=== PATIENT | male | born 1955 | race Caucasian/White ===

== ENCOUNTER 2017-10-04 17:58 | Observation (INO) | payer OTHER ==
[2017-10-04 18:04] VITALS: BMI 25.7
--- NOTE | 2017-10-04 18:29 | DR.GENAD ---
HPI - PCP Primary Care Physician: marquis - Complaint/Symptoms Chief Complaint Doctors Comments: Patient presents with complaint of dyspnea. He admits to a three pack per day smoker but the past week smoked three per day. He denies chest pain. Chief Complaint:: Patient c/o shortness of breath x2 weeks but the shortness of breath has been getting worse. Patient also c/o heaviness in chest intermittently lasting approx 15 minutes. - Source History Provided: Patient - Mode of Arrival Mode of Arrival: Ambulatory - Timing Onset of Chief Complaint: 09/17/17 <BALBINA MERAZ - Last Filed: 10/04/17 19:40> PMH - PMH Past Medical History: Yes Past Medical History: Arthritis, COPD, Hypertension, Hyperthyroidism Past Surgical History: No - Family History History of Family Medical Conditions: Yes Family Medical History: MD, Coronary Artery Disease, Hypertension - Social History Does patient currently use any type of tobacco product: Yes Have you used tobacco products in the last 12 months: Yes Type of Tobacco Use: Cigarettes Does any household member use tobacco: No Alcohol Use: None Do you use any recreational Drugs:: No Lives With: Family Lives Where: Home - infectious screening In the last 2 months have you had wt loss of >10#?: NO Have you had fever, night sweats or hemotysis?: No Have you traveled outside the country in the last 6 months?: No Isolation: Standard <BALBINA MERAZ Last Filed: 10/04/17 19:40> ROS - Review of Systems Eyes: No Symptoms Reported ENTM: No Symptoms Reported Respiratoy: No Symptoms Reported Cardiovascular: No Symptoms Reported Gastrointestinal/Abdominal: No Symptoms Reported Genitourinary: No Symptoms Reported Neurological: No Symptoms Reported Musculoskeletal: No Symptoms Reported Integumentary: No Symptoms Reported Hematologic/Lymphatic: No Symptoms Reported Endocrine: No Symptoms Reported Psychiatric: No Symptoms Reported All Other Systems: Reviewed and Negative <BALBINA MERAZ - Last Filed: 10/04/17 19:40> PE - General General Appearance: Alert, In No Apparent Distress - Head Head Exam: Normal Inspection, Atraumatic - Eyes Eye exam: Normal Appearance, PERRL, EOMI - ENT ENT Exam: Normal Exam External Ear Exam: Normal External Inspection TM/Canal Exam: Bilateral Normal Nose Exam: Normal Nose Exam Mouth Exam: Normal Inspection Throat Exam: Normal Inspection - Neck Neck Exam: Normal Inspection, Full ROM - Chest Chest Inspection: Normal Inspection - Respiratory Respiratory Exam: Normal Lung Sounds Bilat, Accessory Muscle Use Respiratory Exam: Bilateral Clear to Auscultation - Cardiovascular Cardiovascular Exam: Regular Rate - Abdominal Exam Abdominal Exam: Normal Inspection, Normal Bowel Sounds Abdominal Tenderness: negative: RUQ, RLQ, LUQ, LLQ, Epigastrium, Suprapubic, Diffuse, Mild, Moderate, Severe, Other - Extremities Extremities Exam: Normal Inspection, Full ROM - Back Back Exam: Normal Inspection - Neurologic Neurological Exam: Alert, Oriented X3, CN II-XII Intact - Psychiatric Psychiatric Exam: Normal Affect, Normal Mood - Skin Skin Exam: Warm, Dry, Intact <BALBINA MERAZ - Last Filed: 10/04/17 19:40> - Vital Signs Vitals: Temperature 98.2 F Pulse Rate [Left Brachial] 90 Pulse Rate 90 Respiratory Rate 22 Blood Pressure [Right Arm] 163/75 Blood Pressure 134/81 O2 Sat by Pulse Oximetry 100 Course - Reevaluation 1st: Improved <BALBINA MERAZ - Last Filed: 10/04/17 19:40> ROR - Labs Reviewed Laboratory Results Reviewed?: Yes (D Dimer 494) Result Diagrams: 10/04/17 18:27 10/04/17 18:27 - XRAY XRAY Interpreted by: Radiologist (Chest:The cardiac silhouette size is within normal limits for technique. There are increased interstitial markins throughout the lungs, which are increased from prior. No dense infiltrates or significant pleural effusion. Findings: Diffusely increased interstitial markings are increased compared to the prior study and may represent worsened chronic interstitial lung disease, although acute etiology such as interstitial edema or atypical infection are possible. ) <BALBINA MERAZ - Last Filed: 10/04/17 19:40> - Labs Reviewed Result Diagrams: 10/04/17 18:27 10/04/17 18:27 <MER HAYES - Last Filed: 10/04/17 21:43> - Labs Reviewed Laboratory: WBC 7.5 X10^3/uL (3.6-10.0) 10/04/17 18: RBC 4.95 X10^6/uL (4.7-6.0) 10/04/17 18: Hgb 11.9 g/dL (13.5-18.0) L 10/04/17 18: Hct 37.6 % (42.0-54.0) L 10/04/17: MCV 76.1 fL (80.0-100.0) L 10/04/17 MCH 24.1 pg (27.0-34.0) L 10/04/17 MCHC 31.6 g/dL (33.0-35.0) L 10/04/17 RDW 18.0 % (11.6-16.5) H 10/04/17 Plt Count 314 X10^3/uL (150.0-450.0) 10/04/17 Plt Count Comment Adequate (ADEQUATE) 10/04/17 MPV 8.2 fL (7.4-11.0) 10/04/17 Neut % (Auto) 91.3 % (42.0-75.0) H 10/04/17 Lymph % (Auto) 7.2 % (21.0-51.0) L 10/04/17 Brewster % (Auto) 0.9 % (0.0-13.0) 10/04/17 Eos % (Auto) 0.0 % (0.9-2.9) L 10/04/17 Baso % (Auto) 0.6 % (0.2-1.0) 10/04/17 Neut # (Auto) 6.9 x10^3/uL (2.2-4.8) H 10/04/17 Lymph # (Auto) 0.5 X10^3/uL (1.3-2.9) L 10/04/17: Brewster # (Auto) 0.1 x10^3/uL (0.3-0.8) L 10/04/17: Eos # (Auto) 0.0 x10^3/uL (0.0-0.2) 10/04/17 Baso # (Auto) 0.0 X10^3/uL (0.0-0.1) 10/04/17 Absolute Nucleated RBC 0.0 /100WBC 10/04/17 Total Counted 100 10/04/17 Neutrophils % (Manual) 91 % (39-76) H 10/04/17 18: Lymphocytes % (Manual) 9 % (13-43) L 10/04/17 18: Plt Morphology Comment Normal (NORMAL) 10/04/17: RBC Morphology Abnormal (NORMAL) 10/04/17 18: Hypochromasia 1+ A 10/04/17 18: Anisocytosis 1+ A 10/04/17 18: Microcytosis 1+ A 10/04/17: INR Target Range - 10/04/17: INR 1.16 (0.8-1.3) 10/04/17: APTT 35.4 SECONDS (22.9-36.5) 10/04/17: PTT Comment - 10/04/17 D-Dimer 494 ng/mL (0-400) H* 10/04/17 18: Sodium 137 mmol/L (136-145) 10/04/17: Corrected Sodium 143 mmol/L (136-145) 10/04/17: Potassium 4.3 mmol/L (3.5-5.1) 10/04/17: Chloride 105 mmol/L (98-107) 10/04/17: Carbon Dioxide 20.6 mmol/L (21-32) L 10/04/17: BUN 13 mg/dL (7-18) 10/04/17 18: Creatinine 1.19 mg/dL (0.70-1.30) 10/04/17 18: Est GFR (MDRD) Af Amer > 60 (>60) 10/04/17: Est GFR (MDRD) Non-Af > 60 (>60) 10/04/17: Glucose 369 mg/dL (65-99) H 10/04/17 18: Hemoglobin A1c 6.7 % 10/04/17: Calcium 8.2 mg/dL (8.5-10.1) L 10/04/17 18: Corrected Calcium 8.9 mg/dL (8.5-10.1) 10/04/17 18: Magnesium 1.9 mg/dL (1.7-2.9) 10/04/17: Total Bilirubin 0.20 mg/dL (0.2-1.0) 10/04/17 18:27 AST 17 Units/L (15-37) 10/04/17 18:27 ALT 24 Units/L (12-78) 10/04/17 18:27 Alkaline Phosphatase 99 Units/L (46-116) 10/04/17 18:27 Creatine Kinase 107 Units/L (39-308) 10/04/17 18:27 CK-MB (CK-2) < 1.0 ng/mL (0-4.0) 10/04/17 18: CK/CKMB % Calc 0.9 % (<4) 10/04/17 18: Troponin I < 0.02 ng/mL (0-1.5) 10/04/17 18: Total Protein 7.7 g/dL (6.4-8.2) 10/04/17 18: Albumin 3.1 g/dL (3.4-5.0) L 10/04/17 18: Globulin 4.6 g/dL (2.5-4.5) H 10/04/17 18: Albumin/Globulin Ratio 0.7 Ratio (1.1-2.1) L 10/04/17 18:27 <BALBINA MERAZ - Last Filed: 10/04/17 19:40> <MER HAYES - Last Filed: 10/04/17 21:43> - Diagnosis Discharge Problem: Chest pain, rule out acute myocardial infarction, COPD with acute exacerbation , Diabetes mellitus, new onset, Pulmonary interstitial fibrosis, Essential hypertension, Hypothyroidism, Hilar lymphadenopathy - Discharge Plan Disposition: ADMITTED INPATIENT Condition: Stable - Follow ups/Referrals Follow ups/Referrals: Timbo Marcos [Primary Care Provider] - 3 days - Instructions
[2017-10-04 18:39] LABS: BASOPHILS % (AUTO) 0.6 % (0.2-1.0); HEMATOCRIT 37.6 % (42.0-54.0); HEMOGLOBIN 11.9 g/dL (13.5-18.0); LYMPHOCYTES # (AUTO) 0.5 X10^3/uL (1.3-2.9); LYMPHOCYTES % (AUTO) 7.2 % (21.0-51.0); MEAN CORPUSCULAR HEMOGLOBIN 24.1 pg (27.0-34.0); MEAN CORPUSCULAR HGB CONC 31.6 g/dL (33.0-35.0); MEAN CORPUSCULAR VOLUME 76.1 fL (80.0-100.0); MEAN PLATELET VOLUME 8.2 fL (7.4-11.0); MONOCYTES # (AUTO) 0.1 x10^3/uL (0.3-0.8); MONOCYTES % (AUTO) 0.9 % (0.0-13.0); NEUTROPHILS # (AUTO) 6.9 x10^3/uL (2.2-4.8); NEUTROPHILS % (AUTO) 91.3 % (42.0-75.0); PLATELET COUNT 314 X10^3/uL (150.0-450.0); RED BLOOD COUNT 4.95 X10^6/uL (4.7-6.0); WHITE BLOOD COUNT 7.5 X10^3/uL (3.6-10.0)
[2017-10-04] MEDS ORDERED: SOLU-Medrol 125 MG VIAL IVP ONE (18:41)
[2017-10-04] MEDS ORDERED: DUONEB 0.5 MG/3 MG NEB ONE (18:41)
[2017-10-04] MEDS ORDERED: LR 1000 ML IV 1,000 ML IV ONE (18:42)
[2017-10-04] MEDS: LR 1000 ML IV 1,000 ML IV SCH (18:46)
[2017-10-04] MEDS ORDERED: DUONEB 0.5 MG/3 MG ONE (18:47)
[2017-10-04 18:55] LABS: BLOOD UREA NITROGEN 13 mg/dL (7-18); CALCIUM 8.2 mg/dL (8.5-10.1); CARBON DIOXIDE 20.6 mmol/L (21-32); CHLORIDE 105 mmol/L (98-107); COR NA(FOR HYPERGLY) 143 mmol/L (136-145); CREATININE 1.19 mg/dL (0.70-1.30); SODIUM 137 mmol/L (136-145); TROPONIN I < 0.02 ng/mL (0-1.5); eGFR BLACK RACES > 60 (>60); eGFR NON BLACK RACES > 60 (>60)
[2017-10-04 18:56] LABS: PLATELET MORPHOLOGY COMMENT NORMAL (NORMAL)
[2017-10-04 18:58] LABS: ANISOCYTOSIS 1+; HYPOCHROMASIA 1+; MICROCYTOSIS 1+
[2017-10-04 19:00] LABS: ALANINE AMINOTRANSFERASE 24 Units/L (12-78); ALBUMIN 3.1 g/dL (3.4-5.0); ALKALINE PHOSPHATASE 99 Units/L (46-116); ASPARTATE AMINO TRANSFERASE 17 Units/L (15-37); CKMB % 0.9 % (<4); COR CA(FOR HYPOALB) 8.9 mg/dL (8.5-10.1); CREATINE KINASE 107 Units/L (39-308); CREATINE KINASE MB < 1.0 ng/mL (0-4.0); MAGNESIUM 1.9 mg/dL (1.7-2.9); TOTAL PROTEIN 7.7 g/dL (6.4-8.2)
[2017-10-04] MEDS ORDERED: LR 1000 ML IV 1,000 ML IV SCH (19:00)
--- NOTE | 2017-10-04 19:05 | RAD ---
Chest, AP portable Indication: Shortness of breath Comparison: 12/28/2013 Findings: Cardiac silhouette size is within normal limits for technique. There are increased intersti tial markings throughout the lungs, which are increased from prior. No dense infiltrates or significa nt pleural effusion. Findings: Diffusely increased interstitial markings are increased compared to the prior study and may represent worsened chronic interstitial lung disease, although acute etiology such as interstitial edema or at ypical infection are possible. Correlation recommended. Reported By:
[2017-10-04] MEDS ORDERED: SOLU-Medrol 125 MG VIAL ONE (19:07)
[2017-10-04] MEDS ORDERED: NS 100 ML IV 100 ML IV ONE (19:19)
[2017-10-04] MEDS ORDERED: TORADOL 30 MG VIAL IVP ONE (19:23)
[2017-10-04] MEDS ORDERED: TORADOL 30 MG VIAL ONE (19:25)
--- NOTE | 2017-10-04 20:08 | CT ---
HISTORY: Shortness of breath and elevated D-dimer. Study: CT chest with contrast Comparison: Chest x-ray dated same day. Technique: Multiple axial images of the chest were obtained from the thoracic inlet to the upper abdo men after the administration of IV contrast. MIP images were obtained. Dose reduction techniques incl uding Automated Exposure Control (AEC) and adjustment of mA and kV were utilized. Findings: Pathologic appearing mediastinal and left hilar lymph nodes, the largest measuring 2.2 cm in the shor t axis in the subcarinal area. There is no paracardial effusion observed. The thoracic aorta is nor mal in its contour without evidence for aneurysmal dilatation. The central pulmonary arterial system does not demonstrate central filling defects to suggest pulmonary emboli. Moderate centrilobular and paraseptal emphysematous changes. Biapical scarring. No suspicious pulmona ry nodule, mass, pleural effusion, focal consolidation, or pneumothorax. Suggestion of early pulmonar y fibrosis. The upper abdominal structures are unremarkable. Degenerative changes of the spine. No ag gressive osseous lesions. IMPRESSION: 1. No CT evidence of acute pulmonary embolus. 2. Pathologic mediastinal and hilar lymphadenopathy as above. No associated mass or other significant abnormality. This finding is nonspecific. Recommend clinical/laboratory correlation and consider fol low-up CT of the chest in 2-3 months to document stability/resolution. 3. Other chronic findings as above. Reported By:
[2017-10-04] MEDS ORDERED: MORPHINE SULFATE INJ 2 MG INJ IVP PRN (21:51)
[2017-10-04] MEDS ORDERED: NITROSTAT SL PRN (21:51)
[2017-10-04] MEDS ORDERED: ZITHROMAX TAB 250 MG PO ONE (21:55)
[2017-10-04 22:04] LABS: FREE T4 (FREE THYROXINE) 0.98 ng/dL (0.76-1.46); TSH (3RD GENERATION) 0.166 uIU/mL (0.358-3.74)
[2017-10-04 23:05] LABS: CREATINE KINASE 101 Units/L (39-308); CREATINE KINASE MB < 1.0 ng/mL (0-4.0); TROPONIN I < 0.02 ng/mL (0-1.5)
[2017-10-05] MEDS: DUONEB 0.5 MG/3 MG NEB SCH ×5 (00:05→16:26)
[2017-10-05] MEDS ORDERED: NICOTINE PATCH TD SCH (01:00)
[2017-10-05] MEDS ORDERED: VALIUM PO PRN (01:07)
[2017-10-05] MEDS: LR 1000 ML IV 1,000 ML IV SCH ×2 (04:33→11:43)
[2017-10-05 06:11] LABS: BLOOD UREA NITROGEN 17 mg/dL (7-18); CALCIUM 8.3 mg/dL (8.5-10.1); CARBON DIOXIDE 22.2 mmol/L (21-32); CHLORIDE 106 mmol/L (98-107); CHOL/HDL RATIO 6.1 (0.0-5.0); CHOLESTEROL 190 mg/dL (0-200); CKMB % 1.3 % (<4); COR NA(FOR HYPERGLY) 142 mmol/L (136-145); CREATINE KINASE 76 Units/L (39-308); CREATINE KINASE MB < 1.0 ng/mL (0-4.0); CREATININE 1.07 mg/dL (0.70-1.30); HDL CHOLESTEROL 31 mg/dL (40-60); SODIUM 138 mmol/L (136-145); TRIGLYCERIDES 46 mg/dL (0-150); TROPONIN I < 0.02 ng/mL (0-1.5); eGFR BLACK RACES > 60 (>60); eGFR NON BLACK RACES > 60 (>60)
[2017-10-05] MEDS: HumuLIN R SC PRN ×3 (06:16→16:39)
[2017-10-05] MEDS ORDERED: ROBITUSSIN DM PO PRN (06:19)
[2017-10-05] MEDS ORDERED: TYLENOL 325 MG TAB PO PRN (06:19)
[2017-10-05] MEDS ORDERED: TUSSIONEX PENNKINETIC SUSP PO PRN (07:00)
[2017-10-05 07:44] LABS: BASOPHILS % (AUTO) 0.3 % (0.2-1.0); HEMATOCRIT 34.2 % (42.0-54.0); LYMPHOCYTES # (AUTO) 0.9 X10^3/uL (1.3-2.9); LYMPHOCYTES % (AUTO) 8.2 % (21.0-51.0); MEAN CORPUSCULAR HEMOGLOBIN 24.3 pg (27.0-34.0); MEAN PLATELET VOLUME 8.3 fL (7.4-11.0); MONOCYTES # (AUTO) 0.1 x10^3/uL (0.3-0.8); MONOCYTES % (AUTO) 1.3 % (0.0-13.0); NEUTROPHILS # (AUTO) 9.5 x10^3/uL (2.2-4.8); NEUTROPHILS % (AUTO) 90.2 % (42.0-75.0); PLATELET COUNT 279 X10^3/uL (150.0-450.0); RED CELL DISTRIBUTION WIDTH 17.8 % (11.6-16.5); WHITE BLOOD COUNT 10.5 X10^3/uL (3.6-10.0)
[2017-10-05 07:58] LABS: PLATELET MORPHOLOGY COMMENT NORMAL (NORMAL); POIKILOCYTOSIS SLIGHT
[2017-10-05] MEDS ORDERED: LOVENOX INJ 40 MG SYR SC SCH (09:00)
[2017-10-05] MEDS ORDERED: PROTONIX INJ 40 MG VIAL IVP SCH (09:00)
[2017-10-05] MEDS ORDERED: CHECK PATCH XX SCH (09:00)
[2017-10-05] MEDS ORDERED: ASPIRIN PO SCH (09:00)
[2017-10-05] MEDS ORDERED: ZESTRIL TAB 10 MG PO SCH (09:00)
[2017-10-05 10:00] LABS: CREATINE KINASE 81 Units/L (39-308); CREATINE KINASE MB < 1.0 ng/mL (0-4.0); TROPONIN I < 0.02 ng/mL (0-1.5)
[2017-10-05 10:02] LABS: CKMB % 1.2 % (<4)
[2017-10-05] MEDS ORDERED: XANAX PO ONE (14:20)
[2017-10-05] MEDS ORDERED: SYNTHROID 112 mcg TAB PO SCH (15:00)
[2017-10-05] MEDS ORDERED: ROCEPHIN 1 GM IV PREMIX 1 GM/50 ML IV.SOLN. IV ONE (15:51)
[2017-10-05] MEDS ORDERED: NS 250 ML IV 250 ML IV ONE (15:51)
[2017-10-05] MEDS ORDERED: ZITHROMAX INJ 500 MG VIAL IV ONE (15:52)
[2017-10-05] MEDS ORDERED: SOLU-Medrol 40 MG VIAL ONE (15:52)
[2017-10-05] MEDS ORDERED: ZITHROMAX INJ 500 MG VIAL 500 MG in NS 250 ML IV 250 ML IV SCH (15:53)
[2017-10-05] MEDS ORDERED: ROCEPHIN VIAL 1 GM 1 GM in NS 100 ML IV + SPIKE MINIBAG* 100 ML IV SCH (16:00)
[2017-10-05] MEDS ORDERED: PULMICORT NEB TX 0.5 MG NEB SCH (16:00)
[2017-10-05 17:27] VITALS: BP 148/75
[2017-10-05] MEDS ORDERED: SOLU-Medrol 40 MG VIAL IVP SCH (21:00)
== END 2017-10-05 16:50 | disposition short-term general hospital (02) ==
LOC: ER 18:10 → ICU 21:50
PROVIDERS: ADMIT Internal Medicine; ATTEND Internal Medicine
DX: R06.03 Acute respiratory distress (principal); J44.1 Chronic obstructive pulmonary disease with (acute) exacerbation; J20.9 Acute bronchitis, unspecified; R07.89 Other chest pain; E11.9 Type 2 diabetes mellitus without complications; J84.10 Pulmonary fibrosis, unspecified; I10 Essential (primary) hypertension; E03.9 Hypothyroidism, unspecified; R59.0 Localized enlarged lymph nodes; Z87.09 Personal history of other diseases of the respiratory system
CPT/HCPCS: 36415; 71045; 71275; 80048; 80053; 80061; 82550; 82553; 83036; 83735; 84439; 84443; 84484; 85025; 85378; 85610; 85730; 93005; 94640; 96365; 96367; 96374; 99217; 99284; 99285; A4216; A4222; C9113; Q0144; G0378; J0456; J0696; J1650; J1815; J1885; J2270; J2920; J2930; J7120; J7620; J7626

== ENCOUNTER → 2017-11-19 | Outpatient (CLI) | payer OTHER ==
[2017-11-19 10:58] LABS: CREATININE 1.14 mg/dL (0.70-1.30)
--- NOTE | 2017-11-19 13:35 | MRI ---
STUDY: MRI OF THE BRAIN WITHOUT AND WITH GADOLINIUM HISTORY: Transient cerebral ischemic attack. Dizziness and weakness. Technique: Multiplanar multi-sequence MRI of the brain was obtained using standard departmental yaz col. Sagittal and axial T1, axial T2, FLAIR, diffusion (DWI/ADC), GRE, and coronal T2 images through the brain were performed. 15 cc of Omniscan was administered intravenously without reported complication following acquisition of informed written consent. Post gadolinium axial and coronal T1 weighted images were also performed and reviewed. Comparison: Head CT from November 19, 2017. Findings: Pre gadolinium brain: The sulci, cisterns and ventricles are prominent consistent with diffuse volume loss. There are confluent and scattered foci of T2 prolongation in the periventricular and subcortic al white matter of both hemispheres. This is a nonspecific finding which likely represents microangio pathic change in a patient of this age. There is no evidence of acute territorial infarction, hemorrhage, mass, mass effect, or midline shift . There are no abnormal intra-axial or extra-axial fluid collections. The major intracranial vascula r flow voids appear intact. The right vertebral artery is dominant. Post gadolinium brain: Following the uneventful administration of intravenous gadolinium, there is no evidence of abnormal parenchymal or leptomeningeal enhancement. IMPRESSION: 1. No evidence of acute intracranial abnormality. 2. Nonspecific white matter change and volume loss. Reported By:
== END ==
LOC: RAD 10:33
PROVIDERS: ATTEND Internal Medicine
DX: G45.9 Transient cerebral ischemic attack, unspecified (principal)
CPT/HCPCS: 36415; 70553; 82565; 84520

== ENCOUNTER → 2017-11-22 | Outpatient (CLI) | payer OTHER ==
--- NOTE | 2017-11-22 11:10 | MRI ---
STUDY: MRA OF THE BRAIN HISTORY: Transient cerebral ischemic attack. Dizziness and weakness. Comparison: November 19, 2017 brain MRI. Technique: 3D [id number] imaging of the intracranial circulation was performed. Findings: 3D ridj-up-zorhen MRA examination shows normal flow related enhancement in the major intracranial art eries. There is no evidence of hemodynamically significant stenosis or aneurysm. There is a normal an terior communicating artery. Posterior communicating arteries are not identified. The right vertebral artery is dominant. 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 IMPRESSION: 1. Normal MRA of the brain, with anatomic variation as described. Reported By:
== END ==
LOC: RAD 10:10
PROVIDERS: ATTEND Internal Medicine
DX: G45.8 Other transient cerebral ischemic attacks and related syndromes (principal)
CPT/HCPCS: 70544

== ENCOUNTER 2023-08-26 13:29 | Observation (INO) ==
[2023-08-26] MEDS ORDERED: FORTAZ or TAZICEF VIAL INJ IVP SCH (15:22)
--- NOTE | 2023-08-26 15:49 | EKG ---
Test Reason : SOB Blood Pressure : */* mmHG Vent. Rate : 112 BPM Atrial Rate : 112 BPM P-R Int : 130 ms QRS Dur : 78 ms QT Int : 314 ms P-R-T Axes : 66 80 21 degrees QTc Int : 428 ms Sinus tachycardia Cannot rule out Anterior infarct , age undetermined Abnormal ECG No previous ECGs available Confirmed by Jairo Gonzalez MD ([id number]) on 08/27/2023 7:56:42 AM Referred By: Confirmed By: Jairo Gonzalez MD
[2023-08-26 15:54] VITALS: BMI 23.0
[2023-08-26] MEDS ORDERED: NS 1/2 1,000 ML IV 1,000 ML IV ONE (15:55)
[2023-08-26] MEDS: DUONEB 0.5 MG/3 MG (3 mL) NEB SCH (16:02)
[2023-08-26] MEDS: PULMICORT NEB TX 0.5 MG NEB SCH (16:02)
[2023-08-26] MEDS: FORTAZ or TAZICEF VIAL INJ 1 G in NS 100 ML IV 100 ML IV SCH (16:12)
[2023-08-26] MEDS: LEVAQUIN PREMIX IV 750 MG 750 MG/150 ML BAG IV SCH (16:12)
[2023-08-26] MEDS: SOLU-Medrol 40 MG VIAL IVP SCH (16:12)
[2023-08-26] MEDS: NS 1/2 1,000 ML IV 1,000 ML IV SCH (16:12)
[2023-08-26 16:31] LABS: BASOPHILS # (AUTO) 0.1 X10^3/uL (0.0-0.1); BASOPHILS % (AUTO) 0.7 % (0.2-1.0); EOSINOPHILS # (AUTO) 0.1 x10^3/uL (0.0-0.2); HEMATOCRIT 35.7 % (42.0-54.0); HEMOGLOBIN 10.8 g/dL (13.5-18.0); LYMPHOCYTES # (AUTO) 1.7 X10^3/uL (1.3-2.9); LYMPHOCYTES % (AUTO) 12.5 % (21.0-51.0); MEAN CORPUSCULAR HEMOGLOBIN 23.4 pg (27.0-34.0); MEAN CORPUSCULAR HGB CONC 30.2 g/dL (33.0-35.0); MEAN CORPUSCULAR VOLUME 77.4 fL (80.0-100.0); MEAN PLATELET VOLUME 8.3 fL (7.4-11.0); MONOCYTES # (AUTO) 1.1 x10^3/uL (0.3-0.8); MONOCYTES % (AUTO) 8.1 % (0.0-13.0); NEUTROPHILS # (AUTO) 10.5 x10^3/uL (2.2-4.8); NEUTROPHILS % (AUTO) 77.7 % (42.0-75.0); PLATELET COUNT 378 X10^3/uL (150.0-450.0); RED BLOOD COUNT 4.61 X10^6/uL (4.7-6.0); RED CELL DISTRIBUTION WIDTH 19.7 % (11.6-16.5); WHITE BLOOD COUNT 13.6 X10^3/uL (3.6-10.0)
[2023-08-26 16:43] LABS: BILIRUBIN,URINE NEGATIVE (NEGATIVE); BLOOD/HEMOGLOBIN,URINE NEGATIVE (NEGATIVE); GLUCOSE, URINE NEGATIVE (NEGATIVE); KETONES,URINE 1+ (NEGATIVE); LEUKOCYTE ESTERASE ,URINE NEGATIVE (NEGATIVE); NITRITES,URINE NEGATIVE (NEGATIVE); PROTEIN,URINE 2+ (NEGATIVE); UROBILINOGEN,URINE NORMAL (NORMAL)
[2023-08-26 16:48] LABS: ALBUMIN 3.3 g/dL (3.4-5.0); CALCIUM 8.8 mg/dL (8.5-10.1); CARBON DIOXIDE 19.8 mmol/L (21-32); COR CA(FOR HYPOALB) 9.4 mg/dL (8.5-10.1); CREATININE 1.93 mg/dL (0.70-1.30); POTASSIUM 4.9 mmol/L (3.5-5.1); TOTAL PROTEIN 7.5 g/dL (6.4-8.2)
[2023-08-26 16:54] LABS: APPEARANCE,URINE CLEAR (CLEAR); BACTERIA,URINE NEGATIVE /HPF (NEGATIVE); COLOR,URINE YELLOW (YELLOW); RBC,URINE NONE SEEN /HPF (0-3); SQUAMOUS EPITHELIAL CELL,UR RARE /HPF (NEGATIVE)
[2023-08-26] MEDS: ROBITUSSIN DM PO SCH (17:04)
--- NOTE | 2023-08-26 19:40 | EKG ---
Test Reason : SOB Blood Pressure : */* mmHG Vent. Rate : 110 BPM Atrial Rate : 110 BPM P-R Int : 146 ms QRS Dur : 82 ms QT Int : 314 ms P-R-T Axes : 75 89 -16 degrees QTc Int : 424 ms Sinus tachycardia Abnormal QRS-T angle, consider primary T wave abnormality Abnormal ECG When compared with ECG of 26-AUG-2023 15:33, (Unconfirmed) No significant change was found Confirmed by Jairo Gonzalez MD ([id number]) on 08/27/2023 7:56:05 AM Referred By: Confirmed By: Jairo Gonzalez MD
--- NOTE | 2023-08-26 22:41 | EKG ---
Test Reason : SOB Blood Pressure : */* mmHG Vent. Rate : 111 BPM Atrial Rate : 111 BPM P-R Int : 146 ms QRS Dur : 82 ms QT Int : 330 ms P-R-T Axes : 62 81 15 degrees QTc Int : 448 ms Sinus tachycardia Otherwise normal ECG When compared with ECG of 26-AUG-2023 19:29, (Unconfirmed) No significant change was found Confirmed by Jairo Gonzalez MD ([id number]) on 08/27/2023 7:54:29 AM Referred By: Confirmed By: Jairo Gonzalez MD
--- NOTE | 2023-08-27 02:03 | RAD ---
EXAM:CHEST, PA/LAT ADULTHISTORY:PNEUMONIA;COMPARISON:2021FINDINGS:The trachea is midline. The cardiac silhouette is unremarkable . The lungs are clear without focal infiltrate or effusion. Chronic appearing increased interstitial markings. The bony thorax is unremarkable.IMPRESSION:No acute cardiopulmonary disease.THIS IS AN ELECTRONICALLY VERIFIED FINAL REPORT08/27/2023 2:00 AM - Electronically signed by Alli Jones MD
[2023-08-27] MEDS: NovoLIN R (or HumuLIN R) SUBCUT PRN (05:58)
[2023-08-27 06:23] LABS: BASOPHILS % (AUTO) 0.2 % (0.2-1.0); HEMATOCRIT 33.1 % (42.0-54.0); HEMOGLOBIN 9.8 g/dL (13.5-18.0); LYMPHOCYTES # (AUTO) 0.9 X10^3/uL (1.3-2.9); MEAN CORPUSCULAR HEMOGLOBIN 23.3 pg (27.0-34.0); MEAN CORPUSCULAR HGB CONC 29.6 g/dL (33.0-35.0); MEAN CORPUSCULAR VOLUME 78.7 fL (80.0-100.0); MEAN PLATELET VOLUME 8.2 fL (7.4-11.0); MONOCYTES # (AUTO) 0.2 x10^3/uL (0.3-0.8); MONOCYTES % (AUTO) 2.3 % (0.0-13.0); NEUTROPHILS # (AUTO) 9.5 x10^3/uL (2.2-4.8); NEUTROPHILS % (AUTO) 89.5 % (42.0-75.0); PLATELET COUNT 330 X10^3/uL (150.0-450.0); RED CELL DISTRIBUTION WIDTH 19.8 % (11.6-16.5); WHITE BLOOD COUNT 10.6 X10^3/uL (3.6-10.0)
[2023-08-27 06:29] LABS: CALCIUM 8.3 mg/dL (8.5-10.1)
[2023-08-27 07:17] LABS: COR CA(FOR HYPOALB) 9.1 mg/dL (8.5-10.1); CREATININE 2.08 mg/dL (0.70-1.30); TOTAL PROTEIN 6.7 g/dL (6.4-8.2)
[2023-08-27 07:31] LABS: CARBON DIOXIDE 14.7 mmol/L (21-32); POTASSIUM 6.8 mmol/L (3.5-5.1)
[2023-08-27] MEDS ORDERED: ULTRAM PO PRN (09:03)
[2023-08-27 09:10] LABS: ABG BASE EXCESS -12.5 mmol/L (-2.0-2.0)
[2023-08-27 09:11] LABS: ABG HCO3 12.7 mmol/L (22-26)
[2023-08-27] MEDS: VSL#3 PROBIOTIC CAP 112.5 B PO SCH (09:57)
[2023-08-27] MEDS: SYNTHROID 112 mcg TAB PO SCH (09:57)
[2023-08-27] MEDS: REQUIP PO SCH (09:57)
[2023-08-27] MEDS: MOBIC TAB 15 MG PO SCH (09:57)
[2023-08-27] MEDS: NS 1/2 1,000 ML IV 1,000 ML IV ONE (10:17)
[2023-08-27] MEDS: NS 1,000 ML IV 1,000 ML with SODIUM BICARBONATE 8.4% INJ ADULT 50 ML IV SCH (11:18)
--- NOTE | 2023-08-27 11:56 | DR.H&P ---
H&P - History & Physical for Day of: H&P Date: 08/26/23 - Chief Complaint Chief Complaint: SOB, LOWER EXTREMITY SWELLING, HYPOXIA - History of Present Illness History of Present Illness: IS A 68 YEAR OLD PATIENT OF OURS WITH HX OF HTN, DM II, COPD, BPH, HYPOTHYROIDISM, RESTLESS LEGS, AND GENERALIZED ANXIETY DISORDER. HE PRESENTED TO THE OFFICE WITH COMPLAINTS SHORTNESS OF BREATH, LOWER EXTREMITY SWELLING, AND DECREASED OXYGEN SATURATIONS. IN THE OFFICE, PATIENTS OXYGEN SATURATIONS DROPPED TO 69% WHILE AMBULATING ON OXYGEN VIA NASAL CANNULA AT 4 LPM. ADDITIONALLY, HE COMPLAINED OF HEADACHE, DIZZINESS, AND TACHYCARDIA. HIS HR WAS NOTED TO BE 113 BPM. DECISION WAS MADE TO ADMIT PATIENT TO THE HOSPITAL FOR FURTHER EVALUATION AND TREATMENT OF COPD EXACERBATION, HYPOXIA, AND LOWER EXTREMITY SWELLING. ON ARRIVAL TO THE HOSPITAL, HIS VITALS WERE: 98.2-116-24-96%-96/59. LABS WERE OBTAINED. WBC 13.6, RBC 4.61, HGB 10.8, HCT 35.7, PLT COUNT 378, D-DIMER 1.35, SODIUM 140, POTASSIUM 4.9, CHLORIDE 104, CARBON DIOXIDE 19.8, BUN 29, CREATININE 1.93, GLUCOSE 202, CALCIUM 8.8, TOTAL BILI 0.20, AST 13, ALT 17, ALK PHOS 108, CREATINE KINASE 50, TROPONIN 29.6, BNP 1050, TOTAL PROTEIN 7.5, ALBUMIN 3.3. ABG REVEALED: PH 7.280, PC02 27, P02 88, HC03 12.7, 02 SAT 95, BASE EXCESS -12.5, FI02 40. URINALYSIS WAS OBTAINED AND WAS UNREMARKABLE. COVID, INFLUENZA, AND RSV WERE NEGATIVE. BLOOD CULTURES AND AN AIT RESPIRATORY PANEL WERE SET UP. CHEST XRAY WAS OBTAINED AND REVEALED: THE TRACHEA IS MIDLINE. THE CARDIAC SILHOUETTE IS UNREMARKABLE . THE LUNGS ARE CLEAR WITHOUT FOCAL INFILTRATE OR EFFUSION. CHRONIC APPEARING INCREASED INTERST ITIAL MARKINGS. THE BONY THORAX IS UNREMARKABLE. EKG WAS OBTAINED AND REVEALED: SINUS TACHYCARDIA WITH HR 110 BPM. HE WAS STARTED ON NORMAL SALINE AT 75 ML/HR, LEVAQUIN 750MG IV Q48H, FORTAZ 1G IV Q8H, TUSSIONEX Q12H PRN, ROBITUSSIN DM QID, SOLU-MEDROL 80MG IV Q8H, DUONEBS QID, PULMICORT NEBS BID, OTBS ACHS, HUMULIN R SLIDING SCALE, AND PROBIOTICS DAILY. HIS HOME MEDICATIONS OF SYNTHROID, ATIVAN, MOBIC, REQUIP, FLOMAX, AND ULTRAM WERE RESUMED. WE PLANNED TO REPEAT SERIAL CARDIAC ENZYMES AND EKGS AND CONTINUE TO MONITOR. ON THE MORNING FOLLOWING DISCHARGE, WE REPEATED LABS. WBC 10.6, RBC 4.20, HGB 9.8, HCT 33.1, PLT COUNT 330, SODIUM 131, POTASSIUM 6.8, CHLORIDE 98, CARBON DIOXIDE 143.7, BUN 37, CREATININE 2.08, GLUCOSE 394, CALCIUM 8.3, BN9 880, TOTAL PROTIEN 6.7, ALBUMIN 3.0, A1C 10.3. ABG WAS OBTAINED AND REVEALED: PH 7.280, PC02 27, P02 88, HC03 12.7, 02 SAT 95, BASE EXCESS -12.5, FI02 40.0. WE WILL CHANGE HIS IV FLUIDS TO NORMAL SALINE AT 75 ML/HR AND ADD 1 AMP OF SODIUM BICARB TO EACH LITER. WE WILL DECREASE HIS SOLU-MEDROL TO 40MG IV TID. WE WILL REPEAT HIS POTASSIUM LATER IN THE DAY. PATIENT REPORTS HAVING A CARDIAC WORK-UP LAST MONTH AT [facility]. WE WILL OBTAIN THESE RECORDS. OTHERWISE, WE WILL FOLLOW-UP WITH AM LABS AND CONTINUE TO MONITOR. TIME SPENT ON CLINICAL ASSESSMENT, REVIEWING LABS AND IMAGING, DECISION MAKING, AND DOCUMENTATION GREATER THAN 75 MINUTES. - Past Medical History Past Medical History: Anxiety, Arthritis, COPD, Hypertension, Hypothyroidism Additional Medical History: Degenerative Disc Disease, BPH, RLS - Past Surgical History Surgical History: No History - Family History Family Medical History: Diabetes Mellitus, [place], Hypertension - Social History Does patient currently use any type of tobacco product: Yes Have you used tobacco products in the last 12 months: Yes Type of Tobacco Use: Cigarettes Alcohol Use: None Drug Use: None - Review of Systems Constitutional: Weakness Eyes: No Symptoms Reported ENT: No Symptoms Reported Respiratory: Shortness of Breath, SOB with Excertion. denies: Cough Cardiovascular: Edema Gastrointestinal: No Symptoms Reported Genitourinary: No Symptoms Reported Musculoskeletal: Back Pain Skin: No Symptoms Reported Neurological: Weakness - Physical Exam Vital Signs: Vital Signs Temperature 98.3 F Temperature 98.1 F Temperature 98.1 F Pulse Rate [Left Radial] 109 Pulse Rate [Left Radial] 109 Pulse Rate [Left Radial] 109 Respiratory Rate 26 Respiratory Rate 20 Respiratory Rate 20 Blood Pressure [Right Arm] 127/58 Blood Pressure [Right Arm] 149/70 Blood Pressure [Right Arm] 149/70 O2 Sat by Pulse Oximetry 94 O2 Sat by Pulse Oximetry 93 Oriented: Normal Eyes: Normal Ear: Normal Nose: Normal Throat: Normal Respiratory: Wheezes Throughout Cardiovascular: Tachycardia, Edema (BLE 2+ PITTING EDEMA ) : Normal Auscultation: Bowel Sounds: Normal Palpation: Normal Tenderness: Normal Skin: Normal Musculoskeletal: Back:Lumbar Psychiatric: Normal Mood Description: Calm Affect: Normal Speech Pattern: Clear - Assessment/Plan (1) COPD with acute exacerbation Status: Acute Plan: ADMIT, SUPPLEMENTAL OXYGEN, NORMAL SALINE WITH SODIUM BICARB AT 75 ML/HR, LEVAQUIN 750MG IV Q48H, FORTAZ 1G IV Q8H, TUSSIONEX Q12H PRN, ROBITUSSIN DM QID, SOLU-MEDROL 40MG IV Q8H, DUONEBS QID, PULMICORT NEBS BID, OTBS ACHS, HUMULIN R SLIDING SCALE, AND PROBIOTICS DAILY. HIS HOME MEDICATIONS OF SYNTHROID, ATIVAN, MOBIC, REQUIP, FLOMAX, AND ULTRAM WERE RESUMED. 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 Diabetes mellitus complication status: with hyperglycemia Qualified Code(s): E11.65 - Type 2 diabetes mellitus with hyperglycemia; Z79.4 - exterminator (current) use of insulin Status: Acute (8) Essential hypertension Status: Chronic (9) Hypothyroidism Qualifiers: Hypothyroidism type: acquired Qualified Code(s): E03.9 - Hypothyroidism, unspecified Status: Chronic (10) Hyperlipidemia Qualifiers: Hyperlipidemia type: mixed hyperlipidemia Qualified Code(s): E78.2 - Mixed hyperlipidemia Status: Chronic - Allergies Allergies/Adverse Reactions: Allergies Allergy/AdvReac Type Severity Reaction Status Date / Time Penicillins Allergy Verified 11/15/20 07:23 - Medications Home Medications: Home Medications Medication Instructions Recorded Confirmed levothyroxine 112 mcg tablet 112 mcg PO DAILY 12/28/13 08/26/23 ciprofloxacin HCl 250 mg tablet 250 mg PO BID 08/26/23 08/26/23 lorazepam 1 mg tablet 1 mg PO TID 08/26/23 08/26/23 meloxicam 15 mg tablet 15 mg PO DAILY 08/26/23 08/26/23 metformin 850 mg tablet 850 mg PO BID 08/26/23 08/26/23 ropinirole 1 mg tablet 1 mg PO BID 08/26/23 08/26/23 tamsulosin 0.4 mg capsule 0.4 mg PO HS 08/26/23 08/26/23 tramadol 50 mg tablet 50 mg PO QID PRN 08/26/23 08/26/23 triamterene 37.5 1 cap PO QDAY 08/26/23 08/26/23 mg-hydrochlorothiazide 25 mg capsule
[2023-08-27] MEDS: ATIVAN TAB 1 MG PO PRN (12:10)
[2023-08-27] MEDS: SOLU-Medrol 40 MG VIAL IVP SCH (14:51)
[2023-08-27] MEDS: NICOTINE PATCH TD SCH (15:20)
[2023-08-27] MEDS: FLOMAX PO SCH (20:42)
[2023-08-27] MEDS: RESTORIL CAP 15 MG PO PRN (20:43)
[2023-08-27] MEDS: SNACK - Diabetic Appropriate PO SCH (20:44)
[2023-08-28] MEDS ORDERED: NS 1,000 ML IV 0 ML ONE (02:50)
[2023-08-28] MEDS ORDERED: NS 1,000 ML IV 1,000 ML ONE (02:53)
[2023-08-28 04:47] LABS: BASOPHILS # (AUTO) 0.1 X10^3/uL (0.0-0.1); EOSINOPHILS % (AUTO) 0.1 % (0.9-2.9); HEMATOCRIT 29.5 % (42.0-54.0); HEMOGLOBIN 9.1 g/dL (13.5-18.0); LYMPHOCYTES # (AUTO) 0.3 X10^3/uL (1.3-2.9); LYMPHOCYTES % (AUTO) 2.8 % (21.0-51.0); MEAN CORPUSCULAR HEMOGLOBIN 23.2 pg (27.0-34.0); MEAN CORPUSCULAR HGB CONC 30.7 g/dL (33.0-35.0); MEAN CORPUSCULAR VOLUME 75.7 fL (80.0-100.0); MONOCYTES # (AUTO) 0.9 x10^3/uL (0.3-0.8); MONOCYTES % (AUTO) 7.8 % (0.0-13.0); NEUTROPHILS # (AUTO) 10.6 x10^3/uL (2.2-4.8); NEUTROPHILS % (AUTO) 88.3 % (42.0-75.0); PLATELET COUNT 316 X10^3/uL (150.0-450.0); RED CELL DISTRIBUTION WIDTH 19.5 % (11.6-16.5)
[2023-08-28 05:03] LABS: ALBUMIN 3.1 g/dL (3.4-5.0); CALCIUM 8.3 mg/dL (8.5-10.1); CARBON DIOXIDE 18.8 mmol/L (21-32); CREATININE 1.78 mg/dL (0.70-1.30); TOTAL PROTEIN 6.6 g/dL (6.4-8.2)
[2023-08-28 05:06] LABS: POTASSIUM 5.4 mmol/L (3.5-5.1)
--- NOTE | 2023-08-28 05:28 | RAD ---
EXAM:CHEST, 1 VIEWHISTORY:SOB ; HTN, COPD, EMPHYSEMA, DMCOMPARISON:08/26/2023FINDINGS:The trachea is midline. The cardiac silhouette is unremarkable . The lungs are clear without focal infiltrate or effusion. The bony thorax is unremarkable.IMPRESSION:No acute cardiopulmonary disease.THIS IS AN ELECTRONICALLY VERIFIED FINAL REPORT08/28/2023 5:24 AM - Electronically signed by Alli Jones MD
[2023-08-28 05:44] LABS: ABG BASE EXCESS -6.9 mmol/L (-2.0-2.0)
[2023-08-28 05:45] LABS: ABG ALLEN TEST POS; ABG HCO3 17.5 mmol/L (22-26)
[2023-08-28] MEDS: LEVAQUIN PREMIX IV 750 MG 750 MG/150 ML BAG IV SCH (09:11)
[2023-08-28] MEDS: TUSSIONEX PENNKINETIC SUSP PO PRN (09:12)
[2023-08-28] MEDS ORDERED: MILK OF MAGNESIA PO PRN (09:25)
[2023-08-28] MEDS ORDERED: COLACE CAP 100 MG PO PRN (09:25)
[2023-08-28 09:41] VITALS: BP 162/80; PULSE 115; RESP 24; TEMP 97.6; O2SAT 98
== END 2023-08-28 11:40 | disposition home or self-care (01) ==
LOC: MED/SURG → ICU 08-27 11:39
PROVIDERS: ADMIT Internal Medicine; ATTEND Internal Medicine
DX: R60.0 Localized edema; R00.0 Tachycardia, unspecified; J44.1 Chronic obstructive pulmonary disease with (acute) exacerbation; I10 Essential (primary) hypertension; G25.81 Restless legs syndrome; F41.8 Other specified anxiety disorders; R06.02 Shortness of breath; R51.9 Headache, unspecified; E87.5 Hyperkalemia; E78.2 Mixed hyperlipidemia; Z79.4 Long term (current) use of insulin; E11.65 Type 2 diabetes mellitus with hyperglycemia; E03.8 Other specified hypothyroidism; R07.89 Other chest pain; J18.8 Other pneumonia, unspecified organism; Z20.822 Contact with and (suspected) exposure to COVID-19; R09.02 Hypoxemia